=== PATIENT | female | born 1955 | race Caucasian/White ===

== ENCOUNTER 2020-06-15 13:40 | Emergency (ER) | payer OTHER ==
--- NOTE | 2020-06-15 14:14 | EDM.PDOC ---
ED HPI GENERAL MEDICAL PROBLEM - General Chief Complaint: Headache Stated Complaint: FALL ON WEDNESDAY EVENING Time Seen by Provider: 06/15/20 13:55 Source of Information: Reports: Patient History Limitations: Reports: No Limitations - History of Present Illness INITIAL COMMENTS - FREE TEXT/NARRATIVE: 65-year-old female who is in with persistent nausea, dizziness and general ma laise after falling hard 2 days ago and striking the [place] She also has a bruise and a superficial abrasion on the left thigh. She has had no vomiting, but does have a moderate headache which is persistent and worse when lying down. She has been able to sleep. No visual complaints. She hit her head on the left parietal area, not the temporal area. She denies any peripheral asymmetric weakness. Onset: Sudden Duration: Day(s): (2 days ago) Location: Reports: Head, Lower Extremity, Left Quality: Reports: Ache Associated Symptoms: Reports: Confusion (Mild intermittent confusion), Malaise, Other (Intermittent dizziness). Denies: Syncope - Related Data Allergies Allergy/AdvReac Type Severity Reaction Status Date / Time Sulfa (Sulfonamide Allergy Cannot Verified 06/15/20 13:56 Antibiotics) Remember Home Meds: Home Meds NK [No Known Home Meds] 06/15/20 [History] Past Medical History Musculoskeletal History: Reports: Back Pain, Chronic - Past Surgical History Female Surgical History: Reports: Section, D&C Musculoskeletal Surgical History: Reports: Nerve Relocation Social & Family History - Tobacco Use Smoking Status *Q: Never Smoker ED ROS GENERAL - Review of Systems Review Of Systems: See Below Constitutional: Reports: Malaise. Denies: Fever, Chills HEENT: Denies: Vision Change Respiratory: Denies: Shortness of Breath Cardiovascular: Denies: Chest Pain Endocrine: Reports: Fatigue GI/Abdominal: Reports: Decreased Appetite, Nausea. Denies: Abdominal Pain, Vomiting Musculoskeletal: Reports: No Symptoms Neurological: Reports: Dizziness Psychiatric: Reports: No Symptoms ED EXAM, HEAD INJURY - Physical Exam Exam: See Below Exam Limited By: No Limitations General Appearance: Alert, No Apparent Distress Head: Other (Patient is somewhat tender to palpation along the left parietal scalp with there is no hematoma or abrasion or contusion seen.) Eyes: Bilateral Eye: EOMI, Normal Inspection, PERRL Neck: Full Range of Motion, Other (Just mild soreness the passive and active range of motion, no focal tenderness) Respiratory: No Respiratory Distress Extremities: Other (She does have an area of ecchymosis on the lateral left leg with a central abrasion but the wound is superficial, no deep bony tenderness or limitations of motion) Course - Vital Signs Last Recorded V/S: Last Vital Signs Temp 97.1 F 06/15/20 14:02 Pulse 85 06/15/20 14:02 Resp 12 06/15/20 14:02 BP 146/87 H 06/15/20 14:02 Pulse Ox 100 06/15/20 14:02 - Re-Assessments/Exams Free Text/Narrative Re-Assessment/Exam: 06/15/20 14:[address] was ordered without contrast. 06/15/20 15:30 IMPRESSION: Normal noncontrast CT of the head for the patient`s age. No sign of closed head injury. Above findings were discussed with the patient, she was reassured and discharged. Departure - Departure Time of Disposition: 15:41 Disposition: Home, Self-Care 01 Clinical Impression: Concussion without loss of consciousness Qualifiers: Encounter type: initial encounter Qualified Code(s): S06.0X0A - Concussion without loss of consciousness, initial encounter Contusion of leg, left Qualifiers: Encounter type: initial encounter Qualified Code(s): S80.12XA - Contusion of left lower leg, initial encounter - Discharge Information Instructions: Head Injury, Adult Referrals: Tara Sosa DO [Primary Care Provider] - Forms: ED Department Discharge Care Plan Goals: Rest, fluids, and increase activity as tolerated. Tylenol or ibuprofen is beneficial and recheck in the next 5 to 10 days if not improving satisfactorily. Sepsis Event Note (ED) - Evaluation Sepsis Screening Result: No Definite Risk - Focused Exam Vital Signs: Vital Signs Temp Pulse Resp BP Pulse Ox 06/15/20 14:02 97.1 F 85 12 146/87 H 100 06/15/20 13:52 97.1 F 85 12 146/87 H 100
--- NOTE | 2020-06-15 15:12 | CRLCT ---
INDICATION: Status post fall, striking the left side of the head. Weakness. COMPARISON: None available. TECHNIQUE: CT examination of the head was performed with 3 mm thick axial and coronal sections without intravenous contrast. Images were obtained from the vertex of the skull through the skull base, and I examined the images with the brain and bone windows. Please note that all CT scans at this facility use dose modulation, iterative reconstruction, and/or weight-based dosing when appropriate to reduce radiation dose to as low as reasonably achievable. FINDINGS: : The brain is normal in appearance for the patient`s age on today`s study, with no sign of mass lesion, mass effect, hemorrhage, or edema. The ventricles and sulci are normal in appearance for the patient`s age. The visualized portions of the orbits are normal in appearance. The visualized portions of the paranasal sinuses and mastoids are clear. The osseous structures are normal in their appearance with no sign of abnormality in the skull base or calvarium. IMPRESSION: Normal noncontrast CT of the head for the patient`s age. No sign of closed head injury. Please note that all CT scans at this facility use dose modulation, iterative reconstruction, and/or weight-based dosing when appropriate to reduce radiation dose to as low as reasonably achievable. Dictated by Jarad King MD @ Jun 15 2020 3:10PM Signed by Dr. Jarad King @ Jun 15 2020 3:12PM
== END 2020-06-15 15:41 | disposition home or self-care (01) ==
LOC: JP.ED 13:40
DX: S06.0X0A Concussion without loss of consciousness, initial encounter (principal); S80.12XA Contusion of left lower leg, initial encounter; Z88.2 Allergy status to sulfonamides; W22.8XXA Striking against or struck by other objects, initial encounter
CPT/HCPCS: 70450; 99284-25

== ENCOUNTER 2020-12-27 07:25 | Day surgery (SDC) | payer MEDICARE, OTHER ==
[2020-12-27] MEDS ORDERED: metroNIDAZOLE/Normal Saline 500 MG in Premix Bag 1 BAG IV ONE (07:30)
[2020-12-27] MEDS ORDERED: ceFAZolin 2 GM in Premix Bag 1 BAG IV ONE (07:30)
[2020-12-27] MEDS ORDERED: ceFAZolin 2 GM in Sodium Chloride 0.9% 50 ML IV ONE (07:30)
[2020-12-27] MEDS ORDERED: Sodium Chloride 0.9% 1,000 ML IV SCH (07:30)
[2020-12-27] MEDS ORDERED: fentaNYL 250 MCG/5 ML SDV ONE (07:43)
[2020-12-27] MEDS ORDERED: Propofol 200 MG/20 ML SDV ONE (07:44)
[2020-12-27] MEDS ORDERED: Rocuronium 50 MG/5 ML Vial ONE (07:44)
[2020-12-27] MEDS ORDERED: Succinylcholine 200 MG/10 ML MDV ONE (07:44)
[2020-12-27] MEDS ORDERED: Dexamethasone 4 MG/ML SDV ONE (07:44)
[2020-12-27] MEDS ORDERED: Glycopyrrolate 0.2 MG/ML 5 ML MDV ONE (07:44)
[2020-12-27] MEDS ORDERED: Neostigmine Methylsulfate 1 MG/ML 5 ML Syringe ONE (07:44)
[2020-12-27] MEDS ORDERED: Ondansetron 4 MG/2 ML SDV ONE (07:44)
[2020-12-27] MEDS: Bupivacaine 0.5% 50 ML MDV ONE ×2 (09:20→09:30)
[2020-12-27] MEDS: Lidocaine 1% with EPINEPHrine 1:100,000 50 ML MDV ONE ×2 (09:20→09:30)
[2020-12-27] MEDS ORDERED: Zolpidem 5 MG Tab PO PRN (09:39)
[2020-12-27] MEDS ORDERED: hydrOXYzine HCL 100 MG/2 ML SDV IM PRN (09:39)
[2020-12-27] MEDS ORDERED: Benzocaine/Cetylpyridinium/Menthol Lozenge MUCMEM PRN (09:39)
[2020-12-27] MEDS ORDERED: Docusate Sodium 100 MG Cap PO PRN (09:39)
[2020-12-27] MEDS ORDERED: Acetaminophen/HYDROcodone 325-5 MG Tab PO PRN (09:39)
--- NOTE | 2020-12-27 10:48 | OR ---
DATE OF PROCEDURE: 12/27/2020 SURGEON: Ross Fernandez MD PROCEDURE: Laparoscopic cholecystectomy. COMPLICATIONS: None. MECHANICAL EQUIPMENT TEST ENGINEER: None. ANESTHETIC: General. RISKS: Risks, benefits, alternatives, and limitations including, but not limited to infection; bleeding; injury to abdominal structures such as bowel, bladder; cystic duct leaks; common bile duct injuries; and other risks not listed here were explained to the patient, who wished to proceed. PROCEDURE IN DETAIL: The patient was placed in supine position. A supraumbilical curvilinear incision was made. A Veress needle was used to enter the abdomen without abnormality. The abdomen was subsequently insufflated. This was followed by an Optiview trocar. No evidence of enterotomy or injuries noted during the entry. Two 5s and a 10 mm port were entered under direct visualization. The gallbladder was directed cephalad. The infundibulum was retracted inferolaterally. Using blunt dissection, a "clear view" of the gallbladder was obtained with a single pulsatile structure entering the gallbladder and a single non-pulsatile structure entering the gallbladder. These were clipped and subsequently transected. The clips were verified and a photo was taken to ensure that they were completely across the ductal structures. The remaining one-third of the gallbladder was removed off the gallbladder bed without difficulty. The gallbladder was delivered through a superior port without difficulty. The abdomen was inspected for any evidence of bleeding or abnormality and none was noted. This was then irrigated with approximately 500 mL of normal saline and the liquid was subsequently removed. The air was removed. The wounds were closed with 3-0 Vicryl and 4-0 Vicryl in interrupted running fashion. Dermabond was applied. The patient tolerated the procedure well. Ross Fernandez MD /[id number]
--- NOTE | 2020-12-27 10:48 | OR ---
DATE OF PROCEDURE: 12/27/2020 SURGEON: Ross Fernandez MD PROCEDURES: 1. Bilateral transversus abdominis plane blocks. 2. Bilateral rectus sheath blocks. COMPLICATION: None. GLUE PLANT OPERATOR: None. RISKS: Risks, benefits, alternatives, and limitations including, but not limited to infection, bleeding, and injury to abdominal structures were explained to the patient, who wished to proceed. PROCEDURE IN DETAIL: The patient was placed in supine position. The left transversus plane was readily identified using a 13 megahertz ultrasound probe. Approximately 20% of the allotted solution was injected. This was then repeated on the right side, same manner, same fashion, same technique in the same sequence. Bilateral rectus sheaths were also injected under direct visualization using 20% of each of the allotted solution on each side. No evidence of enterotomy or abdominal entry was noted. The patient tolerated the procedure well. Ross Fernandez MD /[id number]
--- NOTE | 2020-12-27 10:48 | DISCH ---
HOSPITAL COURSE: The patient was sent upstairs after a laparoscopic cholecystectomy. Pain is well controlled. No nausea, vomiting, shortness of breath, or chest pain. She was subsequently discharged. FOLLOWUP: With Surgery in 7 to 14 days. ACTIVITY: No lifting greater than 30 pounds x30 days. DISCHARGE MEDICATIONS: Please see MAR, but include [place] for pain. /[id number]
== END 2020-12-27 12:56 | disposition home or self-care (01) ==
LOC: JP.SDS 07:25 → JP.MS 10:30 → JP.SDS 12:56
PROVIDERS: ATTEND Surgery
DX: K81.1 Chronic cholecystitis (principal); E78.00 Pure hypercholesterolemia, unspecified; J45.20 Mild intermittent asthma, uncomplicated; Z88.2 Allergy status to sulfonamides; Z98.890 Other specified postprocedural states
CPT/HCPCS: 36415; 47562; 80053; 85027; A9270; J0171; J0330; J0690; J1100; J2405; J2704; J2710; J2795; J3010; J3490; J7030; J7120

== ENCOUNTER 2022-05-06 11:27 | Emergency (ER) | payer MEDICARE, OTHER ==
[2022-05-06] MEDS ORDERED: Propofol 200 MG/20 ML SDV ONE (13:26)
== END 2022-05-06 14:48 | disposition home or self-care (01) ==
LOC: JP.ED 11:27
DX: S52.592A Other fractures of lower end of left radius, initial encounter for closed fracture (principal); S52.692A Other fracture of lower end of left ulna, initial encounter for closed fracture; E78.00 Pure hypercholesterolemia, unspecified; K21.9 Gastro-esophageal reflux disease without esophagitis; Z88.2 Allergy status to sulfonamides; Z79.899 Other long term (current) drug therapy; W20.8XXA Other cause of strike by thrown, projected or falling object, initial encounter
CPT/HCPCS: 25605; 73100-26-LT; 73100-LT; 73110-26-LT; 73110-LT; 99281; 99283-25; J2704

== ENCOUNTER 2023-10-15 08:26 | Day surgery (SDC) | payer MEDICARE, OTHER ==
[2023-10-15] MEDS: Lactated Ringers 1,000 ML IV SCH (09:10)
[2023-10-15] MEDS ORDERED: Midazolam 1 MG/ML 2 ML SDV ONE (09:51)
[2023-10-15] MEDS ORDERED: Propofol 200 MG/20 ML SDV ONE (09:51)
[2023-10-15] MEDS ORDERED: fentaNYL 50 MCG/ML SDV ONE (09:51)
== END 2023-10-15 11:51 | disposition home or self-care (01) ==
LOC: JP.SDS 08:26
PROVIDERS: ATTEND Student in an Organized Health Care Education/Training Program
DX: Z12.11 Encounter for screening for malignant neoplasm of colon (principal); D12.0 Benign neoplasm of cecum; K21.9 Gastro-esophageal reflux disease without esophagitis; J45.909 Unspecified asthma, uncomplicated; Z88.2 Allergy status to sulfonamides
CPT/HCPCS: 88305; J2250; J2704; J3010; J7120